=== PATIENT | female | born 2000 | race African-American/Black ===

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

== ENCOUNTER 2022-02-06 03:54 | Emergency (ER) | payer MEDICAID, OTHER ==
[~2022-02-06] VITALS: Ht 167.6 cm; Wt 49.0 kg
[~2022-02-06 03:54] MED LIST: PNV1TABL76 MT
[2022-02-06] MEDS ORDERED: AMOX1TAB16 PO (05:30)
[2022-02-06] MEDS ORDERED: IBUPROFEN 800MG TABLET PO ONE (05:30)
[2022-02-06] MEDS ORDERED: IBUP-2030 PO (05:30)
[2022-02-06 06:00] VITALS: BP 121/79
== END 2022-02-06 06:02 | disposition home or self-care (01) ==
LOC: ER 03:54
DX: K04.7 Periapical abscess without sinus (principal)
CPT/HCPCS: 99283

== ENCOUNTER 2022-06-24 20:09 | Emergency (ER) | payer MEDICAID, OTHER ==
[~2022-06-24] VITALS: Ht 167.6 cm; Wt 48.0 kg
[~2022-06-24 20:09] MED LIST changes: +AMOX1TAB16 PO; +IBUP-2030 PO
[2022-06-24 20:23] VITALS: BP 107/71
== END 2022-06-24 21:15 | disposition left against medical advice (07) ==
LOC: ER 20:09
DX: S60.812A Abrasion of left wrist, initial encounter (principal); Z63.79 Other stressful life events affecting family and household; X78.0XXA Intentional self-harm by sharp glass, initial encounter; Y93.89 Activity, other specified; Y92.018 Other place in single-family (private) house as the place of occurrence of the external cause
CPT/HCPCS: 99283